=== PATIENT | male | born 1955 | race Caucasian/White ===

== ENCOUNTER 2024-12-24 16:21 | Emergency (ER) | payer MEDICARE ==
[~2024-12-24] VITALS: Ht 180.3 cm; Wt 91.0 kg
[2024-12-24 16:23] VITALS: O2SAT 97
[2024-12-24 19:30] VITALS: BP 160/80; PULSE 80; RESP 16; TEMP 36.7; O2SAT 96
== END 2024-12-24 19:50 | disposition home or self-care (01) ==
LOC: ER 16:21
DX: S42.031A Displaced fracture of lateral end of right clavicle, initial encounter for closed fracture (principal); Z88.1 Allergy status to other antibiotic agents; W22.8XXA Striking against or struck by other objects, initial encounter; Y93.89 Activity, other specified; Y92.89 Other specified places as the place of occurrence of the external cause; Y99.8 Other external cause status
CPT/HCPCS: 71045; 72170; 73030; 99284